=== PATIENT | male | born 1955 | race American Indian/Alaskan Native ===

== ENCOUNTER 2016-07-06 06:28 | Day surgery (SDC) | payer BC ==
[2016-07-06 07:10] LABS: BASO % 0.8 % (0.0-2.0); EOS # 0.1 K/uL (0.0-0.7); EOS % 1.1 % (0.0-4.0); MEAN CELL VOLUME 89.2 fL (80.0-94.0); MEAN CORPUSCULAR HEMOGLOBIN 29.2 pg (27.0-31.0); MEAN CORPUSCULAR HGB CONC 32.7 g/dL (33.0-37.0); MEAN PLATELET VOLUME 6.3 fL (7.2-11.7); MONO # 0.6 K/uL (0.0-0.8); MONO % 9.9 % (0.0-10.0); RED CELL DISTRIBUTION WIDTH 13.2 % (11.5-14.5); WHITE BLOOD COUNT 5.6 K/uL (4.8-10.8)
[2016-07-06 07:18] LABS: INR 1.2
[2016-07-06 07:19] LABS: CHLORIDE 100 mmol/L (98-107); SODIUM 140 mmol/L (132-148)
[2016-07-06 07:21] LABS: ALB/GLOB RATIO 1.1 (1.0-2.1); AST/SGOT 35 U/L (17-59); BILIRUBIN,TOTAL 0.7 mg/dL (0.2-1.3); CARBON DIOXIDE 25 mmol/L (22-30); GFR AFRICAN-AMERICAN > 60
[2016-07-06 07:22] LABS: ALKALINE PHOSPHATASE 59 U/L (38-126); ALT/SGPT 27 U/L (21-72); BLOOD UREA NITROGEN 15 mg/dL (9-20); CALCIUM 8.7 mg/dl (8.6-10.4); GLUCOSE,RANDOM 101 mg/dL (75-110)
--- NOTE | 2016-07-06 07:52 | C.PDOC ---
History Of Present Illness Patient presents to ED for prostate biopsy by his urologist Dr. Leonardo Welch. He states his PSA has been inreasing, and sometimes he leo difficulty urinating. Deneis fever, dysuria, hematuria, flank pain, abdominal pain. Time Seen by Provider: 07/06/16 07:06 Chief Complaint (Nursing): Male Genitourinary History Per: Patient History/Exam Limitations: no limitations Severity: None Past Medical History Reviewed: Historical Data, Nursing Documentation, Vital Signs Vital Signs: Last Vital Signs Temp 97.1 F L 07/06/16 10:12 Pulse 78 07/06/16 10:12 Resp 18 07/06/16 10:12 BP 145/90 07/06/16 10:12 Pulse Ox 95 07/06/16 10:12 Family History: States: No Known Family Hx - Social History Hx Alcohol Use: No Hx Substance Use: No - Immunization History Hx Tetanus Toxoid Vaccination: No Hx Influenza Vaccination: No Hx Pneumococcal Vaccination: No Review Of Systems Except As Marked, All Systems Reviewed And Found Negative. Constitutional: Negative for: Fever, Chills Cardiovascular: Negative for: Chest Pain Respiratory: Negative for: Shortness of Breath Gastrointestinal: Negative for: Nausea, Vomiting, Abdominal Pain Genitourinary: Negative for: Dysuria, Hematuria Physical Exam - Physical Exam Appears: Well, Non-toxic, No Acute Distress Eye(s): bilateral: Normal Inspection Oral Mucosa: Moist Cardiovascular: Rhythm Regular Respiratory: Normal Breath Sounds, No Rales, No Rhonchi, No Stridor Gastrointestinal/Abdominal: Normal Exam, Bowel Sounds, Soft, No Tenderness ED Course And Treatment - Laboratory Results Result Diagrams: 07/06/16 07:05 07/06/16 07:05 ECG: Interpreted By Me, Viewed By Me (sinus rhythm 79 bpm, normal axis, first degree AB block, no acute ST/T wave changes) ECG Interpretation: No Acute Changes O2 Sat by Pulse Oximetry: 100 (RA) Pulse Ox Interpretation: Normal Progress Note: Blood work, EKG ordered and reviewed. Patient admitted to same day surgery under Dr. Tyler Welch. Disposition - Disposition Disposition: HOSPITALIZED Disposition Time: 08:03 Condition: STABLE - Clinical Impression Clinical Impression: Prostate disorder Decision To Admit - Pt Status Changed To: Hospital Disposition Of: SDS- Endo,OR,Cath,IR - . Bed Request Type: Same Day Surgery Admitting Physician: Sophia Welch Patient Diagnosis: Prostate disorder
--- NOTE | 2016-07-06 08:26 | RAD ---
PROCEDURE: CHEST RADIOGRAPH, 1 VIEW HISTORY: preop COMPARISON: None available. FINDINGS: LUNGS: No focal infiltrate or effusion. Small nodular density in the lateral aspect of the right midlung zone may represent vessel on end versus small nodule and or granuloma. Interval followup study may be helpful if clinically indicated. PLEURA: No pneumothorax or pleural fluid seen. CARDIOVASCULAR: Normal. OSSEOUS STRUCTURES: No significant abnormalities. VISUALIZED UPPER ABDOMEN: Normal. OTHER FINDINGS: None. IMPRESSION: No focal infiltrate or effusion. Small nodular density in the lateral aspect of the right midlung zone may represent vessel on end versus small nodule and or granuloma. Interval followup study may be helpful if clinically indicated.
[2016-07-06] MEDS ORDERED: Gentamicin 160 MG in Sodium Chloride 0.9% 100 ML IVPB ONE (09:30)
[2016-07-06] MEDS ORDERED: cefTRIAXone IV 1 gm in Dextros 50 ML IVPB ONE (09:34)
[2016-07-06] MEDS ORDERED: Lidocaine 2% Jelly (Uro-Jet) ONE (09:34)
[2016-07-06] MEDS ORDERED: Lidocaine 1% Inj (20ml) ONE (09:34)
[2016-07-06] MEDS ORDERED: Oxycodone/Acetaminophen 5/325 mg Tab PO STA (10:16)
[2016-07-06] MEDS ORDERED: Oxycodone/Acetaminophen 5/325 mg Tab ONE (10:22)
--- NOTE | 2016-07-06 10:23 | PCM.SURG1 ---
Surgeon's Initial Post Op Note - Surgeon's Notes Surgeon: Tyler HILL Senior [employer] Administrator: NONE Type of Anesthesia: Local Pre-Operative Diagnosis: ELEVATED PSA Operative Findings: SAME. ENLARGED PROSTATE Post-Operative Diagnosis: SAME Operation Performed: PROSTATE ANESTHETIC FIELD BLOCK. PROSTATE US, BX Specimen/Specimens Removed: PROSTATE BX Estimated Blood Loss: EBL {In ML}: 0 Blood Products Given: N/A Drains Used: No Drains Post-Op Condition: Good Date of Surgery/Procedure: 07/06/16 Time of Surgery/Procedure: 10:10
[2016-07-06 10:40] VITALS: BP 145/90; PULSE 78; RESP 18; TEMP 97.1
--- NOTE | 2016-07-08 09:01 | OP ---
PROCEDURE DATE: 07/06/2016 UROLOGY OPERATIVE REPORT PREOPERATIVE DIAGNOSES: Elevated prostate-specific antigen. POSTOPERATIVE DIAGNOSES: Transrectal prostate ultrasound. Transrectal prostate biopsy. OPERATING SURGEON: Sophia Welch MD. DESCRIPTION OF PROCEDURE: The patient was placed in the lateral decubitus position. The patient rec eived perioperative antibiotics. Rectal examination was performed. There was noted to be diffuse induration of the prostate to a mode rate degree. Seminal vesicles were not palpable. The prostate was moderately enlarged. The rectum was prepped topically with Betadine solution and lidocaine jelly. The Endfire B and K prostate ultrasound probe was inserted per rectum. Prostate was scanned in sagit maddie and transverse planes. Prostate was measured in 3 dimensions. Prostate volume was calculated. FINDINGS: The seminal vesicles were noted to be mildly enlarged. The architecture of the prostate w as diffusely abnormal. The normal definition of planes between the transition peripheral zones was n ot present. The capsule was well-defined, although was irregular and not smooth. There was diffuse moderate hetero echogenicity within the prostate. The prostate width was 48.7 mm. Prostate height was 34.5 mm. Prostate length was 46.2 mm. Calculated prostate volume was 40.7 mL. Prostate anesthetic field block was performed using lidocaine 1% solution. Under ultrasound control, the lidocaine was injected along the posterolateral aspect of the prostate on both right and left si yasmin. Following the anesthetic field block, prostate biopsy was performed. Biopsies were obtained from rig ht and left sides of the prostate including base, mid and apical sextants of the prostate. Two cores were obtained from each sextant. An additional core from the right side was obtained under ultrasound guidance and sent for frozen sec tion analysis. Following prostate biopsy, ultrasound probe was removed. Rectal examination was performed. There wa s no bleeding noted. The patient tolerated the procedure without complication. Sophia Welch MD cc: [id number] TT: 07/08/2016 09:01:40 jn
--- NOTE | 2016-07-09 15:28 | CARD ---
APPROVED REPORT EKG Measurement Heart [id number] <Conclusion> Sinus rhythm with 1st degree AV block with premature atrial complexes Otherwise normal ECG
[2016-07-18 05:26] VITALS: O2SAT 100
== END 2016-07-06 11:09 | disposition home or self-care (01) ==
LOC: C.ER 06:28 → C.SDS 08:02
PROVIDERS: ATTEND Urology
DX: R97.20 Elevated prostate specific antigen [PSA] (principal); R30.0 Dysuria
CPT/HCPCS: 10022; 71010; 80053; 85025; 85610; 85730; 86850; 86900; 88305; 88331; 93005; 99285; J0696; J1580

== ENCOUNTER 2017-06-25 15:54 | Emergency (ER) | payer BC ==
[2017-06-25 17:40] LABS: URINE BILIRUBIN NEGATIVE (NEGATIVE); URINE BLOOD 1+ (NEGATIVE); URINE CLARITY Clear (Clear); URINE COLOR Yellow (YELLOW); URINE GLUCOSE (UA) NORMAL (Normal); URINE LEUKOCYTE ESTERASE NEG Leu/uL (Negative); URINE PROTEIN NEGATIVE (NEGATIVE); URINE UROBILINOGEN NORMAL mg/dL (0.2-1.0)
--- NOTE | 2017-06-25 17:47 | C.PDOC ---
History Of Present Illness 61 year old male with PMH of prostate CA presents to ED complaints of difficulty urinating since yesterday. Patient states he has been taking Flomax and is able to dribble, but now developing lower abdominal pain and fullness. He denies any fever or blood. He went to see Dr Mendez today for chemo and she sent patient to ED for evaluation of urinary retention. Patient denies any fever, chills, vomiting. abdomen: lower suprapubic area firm and distended mildly tender Time Seen by Provider: 06/25/17 17:33 Chief Complaint (Nursing): Male Genitourinary History Per: Patient History/Exam Limitations: no limitations Onset/Duration Of Symptoms: Days (1) Current Symptoms Are (Timing): Still Present Past Medical History Reviewed: Historical Data, Nursing Documentation, Vital Signs Vital Signs: Last Vital Signs Temp 99.3 F 06/25/17 16:22 Pulse 83 06/25/17 16:22 Resp 18 06/25/17 16:22 BP 163/104 H 06/25/17 16:22 Pulse Ox 98 06/25/17 18:05 Family History: States: No Known Family Hx - Social History Hx Alcohol Use: No Hx Substance Use: No - Immunization History Hx Tetanus Toxoid Vaccination: No Hx Influenza Vaccination: No Hx Pneumococcal Vaccination: No Review Of Systems Constitutional: Negative for: Fever, Chills Respiratory: Negative for: Cough, Shortness of Breath Gastrointestinal: Positive for: Abdominal Pain (+fullness). Negative for: Nausea, Vomiting Genitourinary: Positive for: Other (urinary retention). Negative for: Dysuria, Hematuria, Penile Discharge Skin: Negative for: Rash Physical Exam - Physical Exam Appears: Non-toxic, No Acute Distress Skin: Normal Color, Warm, Dry, No Rash Head: Normacephalic Eye(s): bilateral: PERRL Nose: Normal Oral Mucosa: Moist Lips: Normal Appearing Neck: Normal ROM Chest: Symmetrical Cardiovascular: Rhythm Regular, No Murmur Respiratory: Normal Breath Sounds, No Accessory Muscle Use Gastrointestinal/Abdominal: Tenderness (suprapubic area firm. +mild distention) , Distention, No Guarding, No Rebound Extremity: Normal ROM, No Deformity, No Swelling Neurological/Psych: Oriented x3, Normal Speech ED Course And Treatment O2 Sat by Pulse Oximetry: 98 Medical Decision Making Medical Decision Making: Bladder scan performed at bedside showing 972cc urine. 14Fr Meeks catheter inserted by RN and observed by me. [address] Sophia Welch, requests to send urine culture and send home with urine catheter and can follow up in office Disposition Counseled Patient/Family Regarding: Diagnosis, Need For Followup - Disposition Referrals: Sophia Welch MD [Staff Provider] - Disposition: HOME/ ROUTINE Disposition Time: 18:43 Condition: STABLE Additional Instructions: Pleas follow up with urologist in 2-5 days. continue with your usual medications. Instructions: How to Care for Your Meeks Catheter, Male, Urinary Retention (DC) Forms: Basis[employer] (Azerbaijani) - POA Present On Arrival: None - Clinical Impression Clinical Impression: Urine retention, Prostate cancer - Scribe Statement The provider has reviewed the documentation as recorded by the Scribe (Davina Rubio) All medical record entries made by the Scribe were at my direction and personally dictated by me. I have reviewed the chart and agree that the record accurately reflects my personal performance of the history, physical exam, medical decision making, and the department course for this patient. I have also personally directed, reviewed, and agree with the discharge instructions and disposition. Procedures - Catheter Insertion (Urinary) Does Patient Have: other (prostate CA) Bladder Scan/Ultrasound Used: Yes (972cc) Preparation: Povidone-Iodine Type of Catheter Inserted: Meeks Catheter Ghanaian Size: 16 Catheter Balloon Size (mLs): 5 Topical Anesthesia Used: Yes (Uro-jet) Results: retried with smaller/different catheter (14), consulted (Sophia Welch), urine sent for UA/C&S Patient Tolerated Procedure: no complications Complications: pain (upon insertion, then relieved)
[2017-06-25] MEDS ORDERED: Lidocaine 2% Jelly (Uro-Jet) TOP ONE (18:16)
[2017-06-25] MEDS ORDERED: Lidocaine 2% Jelly (Uro-Jet) ONE (18:24)
[2017-06-25 19:33] VITALS: BP 153/96; PULSE 84; RESP 20; TEMP 98.9; O2SAT 96
== END 2017-06-25 19:31 | disposition home or self-care (01) ==
LOC: C.ER 15:54
DX: R33.9 Retention of urine, unspecified (principal); C61 Malignant neoplasm of prostate